=== PATIENT | male | born 2005 | race African-American/Black ===

== ENCOUNTER 2024-05-18 09:14 | Outpatient (CLI) | payer OTHER | END 2024-05-18 23:59 | disposition home or self-care (01) | LOC: MRI02 09:14 | PROVIDERS: ATTEND Family Medicine Sports Medicine | DX: S83.512A Sprain of anterior cruciate ligament of left knee, initial encounter (principal); M25.562 Pain in left knee; M77.9 Enthesopathy, unspecified; M23.312 Other meniscus derangements, anterior horn of medial meniscus, left knee; X58.XXXA Exposure to other specified factors, initial encounter; Y93.89 Activity, other specified; Y92.89 Other specified places as the place of occurrence of the external cause; Y99.8 Other external cause status | CPT/HCPCS: 73721 ==